=== PATIENT | female | born 1975 | race Caucasian/White ===

== ENCOUNTER 2017-03-23 18:49 | Emergency (ER) | payer BC ==
[2017-03-23 18:54] VITALS: BP 141/80; PULSE 100; RESP 20; TEMP 97.2
--- NOTE | 2017-03-23 19:13 | ED ---
Lower Extremity Injury HPI - General Chief Complaint: Extremity Injury, Lower Stated Complaint: leg pain Time Seen by Provider: 03/23/17 19:04 Source: patient, RN notes reviewed Mode of arrival: wheelchair Limitations: no limitations - History of Present Illness Initial Comments: 42-year-old female presents to the emergency department with a chief complaint of left ankle pain. Patient states that she was walking and she popped her left ankle. Patient states she now has pain to her left ankle and she has decreased range of motion in the ankle and pain of the calf. Patient is concerned about her Achilles tendon. Patient states she has no other injuries she did not fall there is no head trauma.Patient denies any recent fever, chills , shortness of breath, chest pain, back pain, abdominal pain, nausea vomiting, numbness or tingling, dysuria or hematuria, constipation or diarrhea, headaches or visual changes, or any other current symptoms. - Related Data Home Medications Medication Instructions Recorded Confirmed Amitriptyline HCl [Elavil] 25 mg PO HS 03/23/17 03/23/17 Baclofen [Lioresal] 40 mg PO Q8H 03/23/17 03/23/17 Multivitamins, Thera [Multivitamin 1 tab PO DAILY 03/23/17 03/23/17 (formulary)] Turmeric Root Extract [Turmeric] 500 mg PO DAILY 03/23/17 03/23/17 Allergies Allergy/AdvReac Type Severity Reaction Status Date / Time No Known Allergies Allergy Verified 03/23/17 19:03 Review of Systems ROS Statement: Those systems with pertinent positive or pertinent negative responses have been documented in the HPI. ROS Other: All systems not noted in ROS Statement are negative. Past Medical History Past Medical History: Cancer, Fibromyalgia Additional Past Medical History / Comment(s): kidney stones, kidney cancer, chronic back and neck pain History of Any Multi-Drug Resistant Organisms: MRSA Date of last positivie culture/infection: 2013 MDRO Source:: right ankle Past Surgical History: Cholecystectomy, Hysterectomy Additional Past Surgical History / Comment(s): left nephrectomy, cervical fusion Past Psychological History: Bipolar Smoking Status: Current every day smoker Past Alcohol Use History: None Reported Past Drug Use History: None Reported General Exam - General Exam Comments Initial Comments: General: The patient is awake and alert, in no distress, and does not appear acutely ill. Neck: The neck is supple, there is no tenderness. Cardiovascular: There is a regular rate and rhythm. No murmur, rub or gallop is appreciated. Respiratory: Lungs are clear to auscultation, respirations are non-labored, breath sounds are equal. No wheezes, stridor, rales, or rhonchi. Musculoskeletal: Sensation intact with 2+ pulses throughout the right lower extremity Full range of motion of right knee. Patient has limited range of motion of left ankle she is unable to do it. Tenderness to palpation along the posterior aspect of the right ankle with a positive Ramachandran test. Neurological: CN II-XII intact, There are no obvious motor or sensory deficits. Coordination appears grossly intact. Speech is normal. Skin: Skin is warm and dry and no rashes or lesions are noted. Psychiatric: Normal mood and affect. Limitations: no limitations Course Vital Signs 03/23/17 18:52 Temperature 97.2 F L Pulse Rate 100 Respiratory 20 Rate Blood Pressure 141/80 O2 Sat by Pulse 98 Oximetry Procedures - Orthopedic Splinting/Casting Injury #1 Side: right Lower Extremity Injury Location: ankle Lower Extremity Immobilizer: posterior splint (Short leg) Medical Decision Making - Medical Decision Making 42-year-old female presents for appears to be a Tendon Injury. Patient Was Placed in an Appropriate Splint. We Gave Her Prescription for Crutches and Follow-Up with Orthopedic. We Discussed Return Parameters and All Her Questions and She Understood and She Is Negative Plan. She Will Be Discharged Home. Disposition Clinical Impression: Achilles tendon injury Disposition: HOME SELF-CARE Condition: Stable Instructions: Achilles Tendon Rupture (ED) Additional Instructions: Please use medication as discussed. Please follow up with family doctor if symptoms have not improved over the next two days. Please return to the emergency room if your symptoms increase or worsen or for any other concerns. Referrals: Payal Pierson MD [Primary Care Provider] - 1-2 days Triston Barlow MD [Medical Doctor] - 1-2 days Time of Disposition: 19:35
--- NOTE | 2017-03-23 19:31 | XR ---
EXAMINATION TYPE: XR ankle complete RT DATE OF EXAM: 03/23/2017 7:26 PM COMPARISON: NONE HISTORY: Ankle pain TECHNIQUE: 3 views FINDINGS: I see no fracture nor dislocation. Ankle mortise is anatomic. There is an Achilles calcanea l spur. IMPRESSION: Calcaneal spurring. No fracture.
== END 2017-03-23 19:43 | disposition home or self-care (01) ==
LOC: EC 18:49
DX: S86.001A Unspecified injury of right Achilles tendon, initial encounter (principal); F17.200 Nicotine dependence, unspecified, uncomplicated; Z79.899 Other long term (current) drug therapy; Z85.528 Personal history of other malignant neoplasm of kidney; Z87.39 Personal history of other diseases of the musculoskeletal system and connective tissue; Z90.5 Acquired absence of kidney
CPT/HCPCS: 29515; 99283

== ENCOUNTER → 2018-02-26 | Outpatient (CLI) | payer BC ==
--- NOTE | 2018-02-27 08:27 | XR ---
EXAMINATION TYPE: XR chest 2V DATE OF EXAM: 02/26/2018 COMPARISON: NONE HISTORY: Bronchitis, cough TECHNIQUE: Frontal and lateral views of the chest are obtained. FINDINGS: There is no focal air space opacity, pleural effusion, or pneumothorax seen. The cardiac silhouette size is within normal limits. Postop changes noted to the cervical spine. There is bronchi al wall thickening. The osseous structures are intact. IMPRESSION: Correlate for bronchitis, reactive airways disease.
== END | disposition home or self-care (01) ==
LOC: RADXRYALE 17:09
PROVIDERS: ATTEND Internal Medicine
DX: J45.909 Unspecified asthma, uncomplicated (principal)
CPT/HCPCS: 71046

== ENCOUNTER → 2018-03-05 | Outpatient (CLI) | payer BC ==
[2018-03-05 13:03] LABS: Basophils % (A) 0 %; Eosinophils # (A) 0.2 k/uL (0-0.7); Eosinophils % (A) 2 %; HCT 44.4 % (34.0-46.0); HGB 14.7 gm/dL (11.4-16.0); Lymphocytes # (A) 2.5 k/uL (1.0-4.8); Lymphocytes % (A) 30 %; MCHC 33.1 g/dL (31.0-37.0); MCV 90.6 fL (80.0-100.0); Mean Platelet Volume 7.6; Monocytes # (A) 0.6 k/uL (0-1.0); Monocytes % (A) 7 %; Neutrophils # (A) 4.9 k/uL (1.3-7.7); Neutrophils % (A) 59 %; Platelet Count 205 k/uL (150-450); RDW 12.4 % (11.5-15.5); WBC 8.3 k/uL (3.8-10.6)
[2018-03-05 13:31] LABS: ALT 25 U/L (9-52); AST 15 U/L (14-36); Alkaline Phosphatase 80 U/L (38-126); Anion Gap 13 mmol/L; Blood Urea Nitrogen 14 mg/dL (7-17); Calcium 9.2 mg/dL (8.4-10.2); Carbon Dioxide 25 mmol/L (22-30); Chloride 106 mmol/L (98-107); Cholesterol 190 mg/dL (<200); Glucose 85 mg/dL (74-99); HDL Cholesterol 59 mg/dL (40-60); LDL Cholesterol,Calculated 107 mg/dL (0-99); Potassium 4.3 mmol/L (3.5-5.1); Sodium 144 mmol/L (137-145); Total Bilirubin 0.5 mg/dL (0.2-1.3); Total Protein 6.8 g/dL (6.3-8.2); Triglycerides 122 mg/dL (<150)
[2018-03-05 13:42] LABS: T4, Free (Free Thyroxine) 1.23 ng/dL (0.78-2.19)
== END | disposition home or self-care (01) ==
LOC: LABWHC1 12:22
PROVIDERS: ATTEND Internal Medicine
DX: Z00.01 Encounter for general adult medical examination with abnormal findings (principal)
CPT/HCPCS: 36415; 80053; 80061; 84439; 84443; 85025

== ENCOUNTER → 2018-04-16 | Outpatient (CLI) | payer BC ==
--- NOTE | 2018-04-16 12:04 | MM ---
Reason for exam: screening (asymptomatic). Baseline mammogram. History: Patient history of other cancer. Family history of breast cancer in mother at age 60. Physical Findings: Nurse did not find any significant physical abnormalities on exam. MG 3D Screening Mammo W/Cad Bilateral CC and MLO view(s) were taken. XCCL view(s) were taken of the left breast. The breast tissue is heterogeneously dense. This may lower the sensitivity of mammography. No suspicious abnormality. These results were verbally communicated with the patient and result sheet given to the patient on 04/16/18. ASSESSMENT: Negative, BI-RAD 1 RECOMMENDATION: Routine screening mammogram of both breasts in 1 year.
== END | disposition home or self-care (01) ==
LOC: RADMAMWWP 11:09
PROVIDERS: ATTEND Internal Medicine
DX: Z12.31 Encounter for screening mammogram for malignant neoplasm of breast (principal)
CPT/HCPCS: 77063; 77067

== ENCOUNTER 2018-08-08 09:09 | Day surgery (SDC) | payer BC ==
[2018-08-03 15:18] VITALS: BMI 46.5
[~2018-08-08 09:09] MED LIST: HYDROmorphone 0.5 MG/0.5 ML SYRINGE IVP PRN; LACTATED RINGERS 1,000 ML IV SCH; LIDOCAINE 1% 20 ML VIAL (10MG/ML) FOR IV START INTRADERMA PRN
[2018-08-08 09:31] VITALS: TEMP 98.1
[2018-08-08] MEDS ORDERED: fentaNYL (PF) 50 MCG/ML 2 ML AMP ONE (09:44)
[2018-08-08] MEDS ORDERED: PROPOFOL 10 MG/ML 20 ML VIAL IV ONE (09:44)
[2018-08-08] MEDS ORDERED: LIDOCAINE 1% INJ 10MG/ML (20 ML MDV) ONE (09:44)
--- NOTE | 2018-08-08 09:56 | P.GSHP ---
History of Present Illness H&P Date: 08/08/18 Chief Complaint: GERD Patient here today for upper endoscopy. Patient has mild reflux. Also being worked up for upcoming sleeve gastrectomy. No dysphagia. Past Medical History Past Medical History: Cancer Additional Past Medical History / Comment(s): kidney stones, kidney cancer, chronic back and neck pain History of Any Multi-Drug Resistant Organisms: MRSA Date of last positivie culture/infection: 2013 MDRO Source:: right ankle Past Surgical History: Section, Cholecystectomy, Hysterectomy Additional Past Surgical History / Comment(s): left nephrectomy, cervical fusion ,rt achilles tendon repair, c/s x2 Past Anesthesia/Blood Transfusion Reactions: Postoperative Nausea & Vomiting ( PONV) Smoking Status: Current some day smoker - Past Family History Mother Family Medical History: Cancer Additional Family Medical History / Comment(s): breast cancer Medications and Allergies Home Medications Medication Instructions Recorded Confirmed Type HYDROcodone/APAP 10-325MG [[place] 1 tab PO DAILY PRN 08/03/18 08/08/18 History 10-325] Methocarbamol [Robaxin] 750 mg PO QID 08/03/18 08/08/18 History Varenicline [Chantix Continuing 1 mg PO BID 08/03/18 08/08/18 History Pack] Allergies Allergy/AdvReac Type Severity Reaction Status Date / Time No Known Allergies Allergy Verified 08/08/18 09:37 Surgical - Exam Vital Signs Temp Pulse Resp BP Pulse Ox 98.1 F 68 17 124/64 97 08/08/18 09:30 08/08/18 09:30 08/08/18 09:30 08/08/18 09:30 08/08/18 09:30 Physical exam: General: Well-developed, well-nourished HEENT: Normocephalic, sclerae nonicteric Abdomen: Nontender, nondistended Extremities: No edema Neuro: Alert and oriented Assessment and Plan (1) GERD (gastroesophageal reflux disease) Narrative/Plan: Will proceed with upper endoscopy Current Visit: Yes Status: Acute Code(s): K21.9 - GASTRO-ESOPHAGEAL REFLUX DISEASE WITHOUT ESOPHAGITIS SNOMED Code(s): 718957286
--- NOTE | 2018-08-08 10:02 | P.PCN ---
Date of Procedure: 08/08/18 Procedure(s) Performed: Preoperative Dx: GERD, screening Postoperative Dx: Gastritis with small erosions Procedure: EGD with Bx Anesthesia: Sedation Endoscopist: Dr. Tanner Specimens: Antrum Endoscopic Procedure: The patient was on the endoscopy table in the left decubitus position. The Olympus gastroscope was inserted into the oropharynx and passed under direct visualization to the region of the third portion of the duodenum. From that point the scope was slowly withdrawn inspecting all surfaces carefully. There were no neoplastic inflammatory or polypoid lesions throughout the duodenum. The pylorus was widely patent. The stomach was carefully inspected. There was gastritis with small erosions. A biopsy of the antrum took place to rule out H. pylori. Retroflexion revealed a normal hiatus. The esophagus was then carefully examined. There were no neoplastic inflammatory or polypoid lesions throughout the visualized esophagus. The patient was then taken to the recovery room in stable condition per anesthesia guidelines. Recommendations: Await biopsies results. Begin antiacids.
[2018-08-08 10:07] VITALS: RESP 18
[2018-08-08 10:22] VITALS: BP 132/82; PULSE 77
== END 2018-08-08 10:51 | disposition home or self-care (01) ==
LOC: ORWHC2ENDO 09:09
PROVIDERS: ATTEND Surgery
DX: K29.50 Unspecified chronic gastritis without bleeding (principal); Z01.818 Encounter for other preprocedural examination; Z87.442 Personal history of urinary calculi; Z85.528 Personal history of other malignant neoplasm of kidney; Z86.14 Personal history of Methicillin resistant Staphylococcus aureus infection; G89.29 Other chronic pain; M54.9 Dorsalgia, unspecified; M54.2 Cervicalgia; F17.210 Nicotine dependence, cigarettes, uncomplicated; E66.01 Morbid (severe) obesity due to excess calories; Z68.42 Body mass index [BMI] 45.0-49.9, adult; Z79.899 Other long term (current) drug therapy
CPT/HCPCS: 88305; 43239; J2001; J3010; J2704

== ENCOUNTER → 2019-12-10 | Outpatient (CLI) | payer BC, OTHER ==
[2019-12-10 15:53] VITALS: BP 110/65; PULSE 65; RESP 16; TEMP 97.4; BMI 29.8
--- NOTE | 2019-12-10 21:22 | P.BASOAP ---
Subjective Progress Note Date: 12/10/19 Principal diagnosis: Morbid obesity Patient here for recheck. Denies nausea or vomiting. Mild reflux. Takes Nexium daily. No exercise regularly. Thinks she is developing bad habits. Snacking more. 4 pound increase. Objective - Vital Signs Vital signs: Vital Signs Temp 97.4 F L 12/10/19 15:49 Pulse 65 12/10/19 15:49 Resp 16 12/10/19 15:49 BP 110/65 12/10/19 15:49 Pulse Ox Intake & Output 12/10/19 12/10/19 12/11/19 06:59 18:59 06:59 Weight 83.915 kg - Exam Abdomen: Soft, nontender, nondistended Assessment/Plan (1) GERD (gastroesophageal reflux disease) Narrative/Plan: Patient overall doing fairly well. Continue dietary and exercise regimen. Increase exercise amounts. We'll see dietitian today. Continue Nexium. Monitor skin rashes. Plan: Date: 12/10/19 Initial Weight: 83.915 kg Initial BMI: 29.8 Current Weight: 83.915 kg Current BMI: 29.8 Type of Surgery: Total Volume in Band: Previous Volume: Volume Removed: Volume Added: Band Size:
== END | disposition home or self-care (01) ==
LOC: BARWHC3 15:27
PROVIDERS: ATTEND Surgery
DX: E66.01 Morbid (severe) obesity due to excess calories (principal); K21.9 Gastro-esophageal reflux disease without esophagitis; Z98.84 Bariatric surgery status
CPT/HCPCS: 97802; G0463; 99211

== ENCOUNTER → 2020-10-12 | Outpatient (CLI) | payer OTHER ==
--- NOTE | 2020-10-12 21:28 | MR ---
EXAMINATION TYPE: MR lumbar spine wo con DATE OF EXAM: 10/12/2020 COMPARISON: None HISTORY: Back and hip pain and numbness for years TECHNIQUE: Multiplanar, multisequence images of the lumbar spine were acquired. L1-L2: Posterior broad-based disc bulge causes anterior mass effect on the thecal sac. No significant foraminal encroachment. L2-L3: Normal disc appearance without desiccation. No herniation, protrusion or disc bulging. No ca nal stenosis is present. Foramina are patent bilaterally. L3-L4: There is some facet arthropathy change. Minimal posterior disc bulge causes slight anterior ma ss effect on the thecal sac. Circumferential extension endplate disc complex encroaches somewhat on t he left neural foramen. L4-L5: Posterior central disc bulge causes minimal anterior mass effect on the thecal sac. Facet arth ropathy with hypertrophy ligamentum flavum causes posterior lateral mass effect on the thecal sac. Ci rcumferential extension endplate disc complex encroaches somewhat on the foramina. There is a minimal anterolisthesis grade 1 L4-5. L5-S1: There is facet arthropathy. Posterior broad-based disc bulge may contact the anterior thecal s ac, proximal S1 nerve roots. Circumferential extension endplate disc complex encroaches upon the fora beatrice left greater than right. Lumbar segments are intact. No paraspinal masses are identified. Conus medullaris has a normal appe arance. Lumbar vertebral bodies show preserved height and alignment. There is multilevel spondylosis, loss of disc height signal is greatest at L5-S1, L3-4, L2-3 and L1-2. Some endplate discogenic marro w signal changes are present. No significant spinal stenosis. IMPRESSION: Degenerative disc disease, facet arthropathy, foraminal encroachment as described.
== END | disposition home or self-care (01) ==
LOC: RADMRIMAIN 19:22
PROVIDERS: ATTEND Internal Medicine
DX: M51.36 Other intervertebral disc degeneration, lumbar region (principal); M47.816 Spondylosis without myelopathy or radiculopathy, lumbar region; M47.817 Spondylosis without myelopathy or radiculopathy, lumbosacral region
CPT/HCPCS: 72148

== ENCOUNTER → 2022-01-19 | Outpatient (CLI) | payer OTHER ==
--- NOTE | 2022-01-20 00:44 | MR ---
EXAMINATION TYPE: MR cspine/lspine wo con DATE OF EXAM: 01/19/2022 COMPARISON: MR scan lumbar spine 10/12/2020 HISTORY: Neck and lower back pain, BUE/BLE radic, hx cervical surgery. Multiplanar multiecho imaging of the cervical and lumbar spine without contrast. There is metal artifact from anterior fusion surgery at C5-6 and C6-7. Cervical vertebrae are normal alignment. There is small posterior disc bulging and herniation at C3-4 and C4-5 and to a small exten t C5-6. Spinal canal is narrowed to 5.5 mm at C4-5. Canal measures 8 mm at C3-4. Canal measures 6.5 m m at C5-6. Cervical cord shows no edema. C5-6 disc herniation is on the right side with impingement o n the right-sided neural foramen. C4-5 disc bulging and herniation is slightly towards the left side with impingement on the lateral recess and neural foramen. C3-4 disc herniation slightly to the left side as well. The visualized brainstem is intact. IMPRESSION: Multilevel cervical disc herniation as above with multilevel spinal stenosis that is more severe at C 4-5. Effacement is more severe on the cervical cord at C5-6 on the right side. No cord edema. Bilater al neural foraminal impingement as above. Lumbar spine. The lumbar vertebrae have normal alignment. There is mild degenerative disc space narrowing from L3 t o S1. There is a mild posterior disc bulge at L1-2 and L5-S1. There is no significant neural foramina l impingement. No significant lumbar spinal stenosis. Lumbar nerve roots appear normal. No evidence o f focal bone destruction. The visualized sacroiliac joints are intact. There is no lumbar paraspinal mass. IMPRESSION: Multilevel degenerative disc space narrowing. No spinal stenosis. Small posterior disc bulging as abo ve. No fracture.
== END | disposition home or self-care (01) ==
LOC: RADMRIMAIN 18:14
PROVIDERS: ATTEND Orthopaedic Surgery
DX: M48.02 Spinal stenosis, cervical region (principal); M50.10 Cervical disc disorder with radiculopathy, unspecified cervical region; M51.17 Intervertebral disc disorders with radiculopathy, lumbosacral region
CPT/HCPCS: 72141; 72148

== ENCOUNTER → 2022-11-28 | Outpatient (CLI) | payer OTHER ==
[2022-11-28 14:30] VITALS: BP 110/56; PULSE 78; RESP 18; TEMP 98.1
--- NOTE | 2022-11-28 15:25 | P.PAINPG ---
PQRS Measure Charge Sheet Comment: HISTORY OF PRESENT ILLNESS: 47 yr old female as a referral from Dr Rodríguez presents today w severe and chronic DDD, spondylolisthesis and facet arthropathy without myelopathy secondary to for evaluation. Pt states pain level is at 6 /10 in intensity, constant, localized in the lower lumbar spine, stabbing, throbbing in character w shooting pain towards the BLEs. Pain is provoked by walking/ sitting/ standing for periods of 15 min or more. Pain is alleviated by PT is upcoming in the next week, massage therapy as needed, chiropractic treatments were not indicated per chiropractor, medications (Lyrica, Flexeril, Godfrey), repositioning and rest. PMH: Renal Cancer PSH: Cervical Fusion x4, Bariatric Surgery (2018), Section x2, Cholecystectomy, Hysterectomy, L Nephrectomy, R Achilles Tendon Repair SH: Daily tobacco use, No ETOH abuse, No illicit drug use. Works at a pet store. FH: Mo- Breast CA. All: NKDA Meds: See list REVIEW OF ORGAN SYSTEMS: CONSTITUTIONAL: No fevers or chills. No recent weight loss. NEUROLOGICAL: + numbness and tingling along the distal extremities. No seizure disorders or headaches. MUSCULOSKELETAL: + pain PSYCHIATRIC: Denies current depression or suicidal thoughts. Physical Examinations : Constitutional : Cooperative , not in acute distress . Neurologic : Cranial nerve II to XII intact. No focal neurological deficits. Psychiatric : alert & oriented x 3. Matching mood & appropriate affect. Judgment & insight intact. Musculoskeletal : Cervical Spine Motor strength in the deltoid and biceps: Normal right side. Normal Left side Motor strength biceps and the wrist extensors: Normal right side . Normal left side Motor strength in the triceps muscle: Normal right side. Normal left side Deep tendon reflexes: Normal at the biceps. Normal at Brachioradialis. Normal at triceps Vertebral body tenderness to deep palpation over Cervical facet loading test: positive bilaterally Spurling test: positive bilaterally Neck distraction test: positive bilaterally Rody sign: positive bilaterally Lumbar spine Motor strength lower extremities ,thigh and legs 5/5 Right side , 5/5 Left side Deep tendon reflexes : Normal Knee Jerk. Normal Ankle Jerk Vertebral body tenderness over L5 Lumbar facet Loading Test: positive Right / positive Left Range of motion of the lumbar spine Flexion 30 degrees, extension 10 degrees Straight Leg Raise test: Left/ Right positive at degree Sandrita test: positive right / positive left. Severe tenderness over the Sacroiliac joint on the Right / Left sides Gaenslen test: positive bilaterally Seated flexion test: positive bilaterally. Sacral spine : Severe tenderness over the Sacroiliac joint: right side / left side Range of motion: Flexion of the lumbar spine <60 degrees Range of motion: Extension of the lumbar spine <20 degrees Gaenslen's Test positive Ben's Test positive Sandrita test: positive right side / left side Thigh Thrust Test Sacral Thrust Test Imaging: MRI without contrast of the lumbar spine from 10/12/20 reviewed Assessment/ Plan : Lumbar DDD, him bar spondylolisthesis Recommendation of BETY L5-S1. May need a series, up to 3 within a 6 mo period, for optimal pain relief. Risks, benefits of procedure discussed and patient verbalized understanding. Admits to aspirin or anti- coagulant use or medical history of diabetes. Protocol for discontinuation/ continuation of medications yulisa procedure discussed. All questions answered. I have spent greater than 30 minutes on patient care today. Dr Patel was available by phone for the evaluation of this patient. The time was used to review the medical records including relevant urine studies and Prescription history (MAPs), review of the available imaging, evaluation and examination of the patient, coordination of care with the medical staff and if applicable referring physicians, as well as creation of the medical record PQRS Narrative: Smoking Status Current some day smoker Home Medications: Ambulatory Orders methocarbamoL [Robaxin] 750 mg PO QID 08/03/18 Ergocalciferol (Vitamin D2) [Vitamin D2] 1,250 mg PO DAILY 12/12/19 Magnesium 200 mg PO DAILY 12/12/19 Multivitamins, Thera [Multivitamin (formulary)] 1 tab PO DAILY 12/12/19 bisacodyL [Dulcolax] 5 mg PO DAILY 12/12/19 Pantoprazole Sodium [Protonix] 40 mg PO DAILY 06/02/20 Controlled Substance Measures - Controlled Substance Measures Is patient prescribed a controlled substance at discharge?: No
== END ==
LOC: PNWHC3 13:39
PROVIDERS: ATTEND Specialist
DX: M43.16 Spondylolisthesis, lumbar region (principal); M51.36 Other intervertebral disc degeneration, lumbar region; F17.210 Nicotine dependence, cigarettes, uncomplicated
CPT/HCPCS: 99211

== ENCOUNTER → 2022-12-06 | Outpatient (CLI) | payer OTHER ==
[2022-12-06 15:34] VITALS: BP 116/79; PULSE 78; RESP 16; TEMP 97.5; BMI 32.1
--- NOTE | 2022-12-06 16:06 | P.BASOAP ---
Subjective Progress Note Date: 12/06/22 Principal diagnosis: Morbid obesity 39-year-old female known to our service. She was last seen 3 years ago. Patient underwent sleeve gastrectomy late 2018. She has gained approximately 25-30 pounds in the last few years. Patient describes increased stress at home and at work. She has made some poor choices. She has had some increased GERD symptoms. She is taking Protonix twice each night. Patient says she has been drinking some soda and also having some chocolate daily. Says she is making poor choices. She is due for lab work. No dysphagia. "Wants to get back on track" Objective - Vital Signs Vital signs: Vital Signs Temp 97.5 F L 12/06/22 15:33 Pulse 78 12/06/22 15:33 Resp 16 12/06/22 15:33 BP 116/79 12/06/22 15:33 Pulse Ox FiO2 Intake & Output 12/05/22 12/06/22 12/06/22 18:59 06:59 18:59 Weight 90.265 kg - Exam Abdomen: Soft, nontender, nondistended Assessment/Plan (1) GERD (gastroesophageal reflux disease) Narrative/Plan: Overall patient doing fairly well. She is having reflux symptoms. Continue antiacids. Regarding the patient's recent weight gain Will have the patient seen by dietary today. She states she will try to eliminate some of the poor choices she has made recently. Plan recheck here in the office in 2 months. Check annual labs at this time. Plan: Date: 12/06/22 Initial Weight: 83.915 kg Initial BMI: 29.8 Current Weight: 90.265 kg Current BMI: 32.1 Type of Surgery: Vertical Sleeve Gastrectomy Total Volume in Band: Previous Volume: Volume Removed: Volume Added: Band Size:
[2022-12-07 01:36] LABS: HCT 47.5 % (37.2-46.3); HGB 14.8 g/dL (12.0-15.0); MCH 30.1 pg (27.0-32.0); MCHC 31.2 g/dL (32.0-37.0); MCV 96.5 fL (80.0-97.0); Mean Platelet Volume 12.1 fL (9.5-12.2); NRBC Per 100 WBC 0 /100 WBCS (0.0-0.0); Platelet Count 191 X 10*3/uL (140-440); RBC 4.92 X 10*6/uL (4.10-5.20); RDW 11.8 % (11.5-14.5); WBC 6.57 X 10*3/uL (4.50-10.00)
[2022-12-07 04:03] LABS: African American GFR (CKD) 94.7 (60.0-200.0); Albumin 4.6 g/dL (3.8-4.9); Albumin/Globulin Ratio 1.83 (1.60-3.17); Anion Gap 10.7 mmol/L (10.00-18.00); BUN/Creat Ratio 21.56 Ratio (12.00-20.00); Blood Urea Nitrogen 18.2 mg/dL (9.0-27.0); Calcium 9.7 mg/dL (8.7-10.3); Carbon Dioxide 28.1 mmol/L (20.0-27.5); Globulin 2.5 g/dL (1.6-3.3); Non-African American GFR(CKD) 81.7 (60.0-200.0); Potassium 4.6 mmol/L (3.5-5.5); Total Bilirubin 0.4 mg/dL (0.30-1.20); Total Protein 7.2 g/dL (6.2-8.2)
== END ==
LOC: BARWHC3 15:28
PROVIDERS: ATTEND Surgery
DX: E66.01 Morbid (severe) obesity due to excess calories (principal); K21.9 Gastro-esophageal reflux disease without esophagitis; Z68.32 Body mass index [BMI] 32.0-32.9, adult; F17.200 Nicotine dependence, unspecified, uncomplicated
CPT/HCPCS: 84425; 80053; 82607; 82746; 83540; 85027; 82306; G0463; 99211

== ENCOUNTER → 2023-01-26 | Outpatient (CLI) | payer OTHER ==
[2023-01-26 12:06] VITALS: BP 120/75; PULSE 52; RESP 18; TEMP 98
--- NOTE | 2023-01-26 15:53 | P.PAINPG ---
PQRS Measure Charge Sheet Comment: A 47 yr old female with a history of severe and chronic LBP secondary to lumbar DDD and spondylosis with facet arthropathy without myelopathy presents today for evaluation s/p BETY L5-S1. Pt states she experienced 0 % pain relief x 4 wks s/p procedure. Pt also admits she's experienced a headache ever since the procedure and was told she may have a spinal leak. She states she doesn't want to consider any procedures at this time and will follow up w a Neurologist. She admits she was prescribed [place] and Lyrica which "do not help." Pain level is provoked at 7 /10 in intensity, constant, localized in the lumbar spine, throbbing in character w shooting towards the BL calves. Pain is provoked by bending, twisting, lifting or any over activity. Pain is alleviated slightly with medications, repositioning and inactivity. Interventional pain procedures completed include BETY L5-S1 x1 Patient is currently on [place], Lyrica, Baclofen Patient denies any side effects of the medication(s), denies excessive drowsiness or sleepiness, denies suicidal ideation and reports that the current pain medication is helping to control the pain and improve activities of daily living. Patient denies any motor or sensory deficits. Patient denies any fever or night sweats, denies any change in the bowel movements or urination. Physical Examination: -Constitutional: Cooperative. Not in acute distress . - Neurologic: Cranial nerve II to XII intact. No focal neurological deficits. - Psychatric: Alert & oriented x 3. Matching mood & appropriate affect. Judgment and insight intact. - Musculoskeletal: Cervical spine: Muscle bulk/ tone/ strength in the bilateral upper extremities normal Vertebral body tenderness to palpation over Spurling test positive Distraction test positive Facet loading test positive TTP Thoracic spine Muscle bulk / tone/ strength in the bilateral paraspinal muscles normal Vertebral body tender to palpation over Facet loading test positive TTP Lumbar spine: Motor bulk/ tone/ strength lower extremities , thigh and legs : 5/5 Deep tendon reflexes : Normal Knee Jerk. Normal Ankle Jerk . Vertebral body tenderness to palpation over Lumbar Facet Loading Test positive Straight Leg Raise: positive at 30 degrees right side/ left side Gaenslen's Test positive Sacral spine : Severe tenderness over the Sacroiliac joint: right side / left side Range of motion: Flexion of the lumbar spine <60 degrees Range of motion: Extension of the lumbar spine <20 degrees Gaenslen's Test positive right side / left side Sandrita test: positive right side / left side Thigh Thrust Test positive right side / left side Sacral Thrust Test positive right side / left side Assessment and plan: Chronic LBP secondary to lumbar DDD, spondylosis with facet arthropathy without myelopathy Pt states she will follow up w Dr Wallace, Neurologist, for headaches s/p BETY. She will also follow up w Dr Rodríguez for additional orthopedic surgery treatment options. Risks, benefits of procedure discussed and pt verbalized understanding. Admits to anticoagulant use or medical history of diabetes. Protocol for discontinuation/ continuation of medications yulisa procedure discussed. All questions answered. I have spent less than 30 minutes on patient care today. Dr Patel was available by phone for the evaluation of this patient. The time was used to review the medical records including relevant urine studies and Prescription history (MAPs), review of the available imaging, evaluation and examination of the patient, coordination of care with the medical staff and if applicable referring physicians, as well as creation of the medical record PQRS Narrative: Smoking Status Current some day smoker Hx Alcohol Use (MH) No Home Medications: Ambulatory Orders methocarbamoL [Robaxin] 750 mg PO QID 08/03/18 Ergocalciferol (Vitamin D2) [Vitamin D2] 1,250 mg PO DAILY 12/12/19 Magnesium 200 mg PO DAILY 12/12/19 Multivitamins, Thera [Multivitamin (formulary)] 1 tab PO DAILY 12/12/19 bisacodyL [Dulcolax] 5 mg PO DAILY 12/12/19 Pantoprazole Sodium [Protonix] 40 mg PO DAILY 06/02/20 Controlled Substance Measures - Controlled Substance Measures Is patient prescribed a controlled substance at discharge?: No
== END ==
LOC: PNWHC3 11:12
PROVIDERS: ATTEND Specialist
DX: M51.36 Other intervertebral disc degeneration, lumbar region (principal); M47.816 Spondylosis without myelopathy or radiculopathy, lumbar region; G89.29 Other chronic pain; F17.200 Nicotine dependence, unspecified, uncomplicated
CPT/HCPCS: 99211